=== PATIENT | female | born 1990 | race Caucasian/White ===

== ENCOUNTER 2021-04-02 19:43 | Emergency (ER) | payer OTHER, MEDICAID ==
[~2021-04-02] VITALS: Ht 152.4 cm; Wt 60.3 kg
[2021-04-02] MEDS ORDERED: XANAX 0.25 MG0.25 MG PO (19:53)
[2021-04-02] MEDS ORDERED: LEXAPRO 10 MG T10 M2 PO (19:54)
[2021-04-02] MEDS ORDERED: AUGMENTIN 875-1 EACH PO (21:15)
[2021-04-02 21:38] VITALS: BP 135/84
== END 2021-04-02 21:39 | disposition home or self-care (01) ==
LOC: M.ERS 19:43
DX: J01.90 Acute sinusitis, unspecified (principal); B96.89 Other specified bacterial agents as the cause of diseases classified elsewhere; Z88.1 Allergy status to other antibiotic agents; Z79.899 Other long term (current) drug therapy